=== PATIENT | female | born 1930 | race African-American/Black ===

== ENCOUNTER 2018-09-26 14:56 | Inpatient (IN) ==
[2018-09-26] MEDS ORDERED: ALBUTEROL/IPRATROPIUM 3 ML NEB RESP TX STA (15:17)
[2018-09-26] MEDS ORDERED: methylPREDNISolone SOD SUC 125 MG/2 ML VIAL IV STA (15:17)
[2018-09-26 15:56] LABS: Albumin 2.8 G/DL (3.4-5.0); Bilirubin,Total 0.6 MG/DL (0.2-1.0); Calcium 8.8 MG/DL (8.5-10.1); Osmolality,Calculated 301.4 MOS/KG (273-304); Total Protein 7.3 G/DL (6.4-8.3)
[2018-09-26 16:02] LABS: Potassium 6.7 MMOL/L (3.5-5.1)
[2018-09-26] MEDS ORDERED: FUROSEMIDE 40 MG/4 ML VIAL IV STA (16:07)
[2018-09-26 16:29] LABS: Basophils % 0.2 % (0.0-0.8); Eosinophils % 0.1 % (0.00-10.9); Hematocrit 29.6 VOL% (35.7-47.0); Hemoglobin 8.8 GM/DL (12.0-16.0); Immature Granulocytes % 0.5 %; Immature Granulocytes Absolute 0.04 #; Lymphocytes # 1.8 10*3/uL (1.4-4.0); Lymphocytes % 20.4 % (21.3-54.2); Mean Corpuscular HGB Conc 29.7 GM/DL (32-36); Mean Corpuscular Hemoglobin 27 PG (27-34); Mean Corpuscular Volume 91.9 FL (87-102); Mean Platelet Volume 10.6 FL (9.6-12.0); Monocytes # 0.6 10*3/uL (0.11-0.8); Monocytes % 6.5 % (1.7-12.7); Neutrophils # 6.2 10*3/uL (1.4-7.4); Neutrophils % 72.3 % (38.7-73.9); Platelet Count 315 T/CUMM (130-400); Red Blood Count 3.22 MC/CUMM (3.8-5.5); Red Cell Distribution Width 14.6 % (9.3-17.3); White Blood Count 8.6 T/CUMM (4-12)
[2018-09-26 16:49] LABS: Apearance,Urine CLOUDY (Clear); Bacteria,Urine Many /HPF (Few); Bilirubin,Urine Negative (Negative); Blood, Urine Moderate mg/dL (Negative); Glucose,Urine (UA) Negative (Negative); Ketones,Urine Negative (Negative); Nitrite,Urine Negative (Negative); Protein,Urine Negative; RBC,Urine 6 /HPF (0-4); Urine Color Yellow (Yellow); Urine Specific Gravity 1.015 (1.001-1.035); Urine Urobilinogen < 2.0 EU/DL (0.2-1.0); WBC,Urine 97 /HPF (0-6)
[2018-09-26 16:55] LABS: Albumin 2.7 G/DL (3.4-5.0); Bilirubin,Total 0.4 MG/DL (0.2-1.0); Calcium 9.1 MG/DL (8.5-10.1); Osmolality,Calculated 301.4 MOS/KG (273-304); Potassium 5.4 MMOL/L (3.5-5.1); Total Protein 7.7 G/DL (6.4-8.3)
[2018-09-26] MEDS ORDERED: cefTRIAXone 1,000 MG in SODIUM CHLORIDE 0.9% 100 ML IV STA (17:10)
[2018-09-26] MEDS ORDERED: INSULIN REGULAR 100 UNIT/ML SUBCUT PRN (18:07)
[2018-09-26] MEDS ORDERED: ONDANSETRON 4 MG/2 ML VIAL IV PRN (18:12)
[2018-09-26] MEDS ORDERED: ACETAMINOPHEN 325 MG TABLET PO PRN (18:15)
[2018-09-26] MEDS ORDERED: MAGNESIUM SULF RIDER 4 GM in PREMIX 1 EACH IV PRN (18:15)
[2018-09-26] MEDS ORDERED: MAGNESIUM SULF RIDER 2 GM in PREMIX 1 EACH IV PRN (18:15)
[2018-09-26] MEDS ORDERED: GLUCAGON 1 MG VIAL IM PRN (18:19)
[2018-09-26] MEDS: ALBUTEROL/IPRATROPIUM 3 ML NEB RESP TX SCH (19:07)
[2018-09-26] MEDS ORDERED: LOSARTAN 50 MG TABLET PO SCH (21:00)
[2018-09-27] MEDS: ALBUTEROL/IPRATROPIUM 3 ML NEB RESP TX SCH ×7 (00:39→22:56)
[2018-09-27 01:59] LABS: Osmolality,Calculated 313.1 MOS/KG (273-304)
[2018-09-27 02:14] LABS: Potassium 6.3 MMOL/L (3.5-5.1)
[2018-09-27] MEDS ORDERED: INSULIN REGULAR 100 UNIT/ML IV ONE ×5 (02:54→11:21)
[2018-09-27 03:25] LABS: Allen Test Positive
[2018-09-27 03:26] LABS: ABG Base Excess -5.2 MMOL/L (-2.5-2.5); ABG HCO3 20.1 MMOL/L (20-26); ABG Oxygen Saturation 95.2 % (95-100); ABG PCO2 32.3 MM HG (35-48); ABG PH 7.382 (7.35-7.45); ABG PO2 76.7 MM HG (80-95); ABG TCO2 17.8 MMOL/L (23-27)
[2018-09-27] MEDS: SODIUM POLYSTYRENE SULFATE 15 GM/60 ML BOTTLE PO SCH ×3 (05:03→18:35)
[2018-09-27] MEDS: MEMANTINE 10 MG TABLET PO SCH ×2 (05:33→08:35)
[2018-09-27] MEDS: DICLOFENAC SODIUM 50 MG TABLET PO SCH ×2 (05:33→08:35)
[2018-09-27] MEDS: miSOPROStol 200 MCG TABLET PO SCH ×2 (05:33→08:34)
[2018-09-27] MEDS: CALCIUM (CARBONATE)/VITAMIN D 600 MG-400 UNIT TABLET PO SCH ×2 (05:33→08:35)
[2018-09-27] MEDS: LEVOTHYROXINE 25 MCG TABLET PO SCH (06:23)
[2018-09-27] MEDS ORDERED: INSULIN ASPART PROTAMINE/ASPART 70/30 100 UNIT/ML SUBCUT SCH (07:30)
[2018-09-27] MEDS: glipiZIDE 5 MG TABLET PO SCH (07:45)
[2018-09-27] MEDS ORDERED: INSULIN LISPRO 100 UNIT/ML SUBCUT SCH (08:00)
[2018-09-27] MEDS ORDERED: FUROSEMIDE 40 MG/4 ML VIAL IV SCH (08:00)
[2018-09-27] MEDS ORDERED: SODIUM BICARBONATE 50 MEQ/50 ML SYRINGE IV ONE (08:01)
[2018-09-27] MEDS ORDERED: INSULIN REGULAR 100 UNIT/ML SUBCUT ONE (08:02)
[2018-09-27] MEDS: ATORVASTATIN 10 MG TABLET PO SCH (08:35)
[2018-09-27] MEDS: LORATADINE 10 MG TABLET PO SCH (08:35)
[2018-09-27] MEDS: amLODIPine 5 MG TABLET PO SCH (08:35)
[2018-09-27] MEDS: MULTIVITAMIN (CENTRUM) TABLET PO SCH (08:35)
[2018-09-27] MEDS: cefTRIAXone 1,000 MG in SYRINGE 1 EACH IV SCH (08:36)
[2018-09-27] MEDS: hydrALAZINE 25 MG TABLET PO SCH (08:36)
[2018-09-27] MEDS: FUROSEMIDE 40 MG/4 ML VIAL IV SCH (08:36)
[2018-09-27] MEDS ORDERED: predniSONE 20 MG TABLET PO SCH (09:00)
[2018-09-27] MEDS: CARBOXYMETHYLCELLULOSE 1% OPH SOLN BOTH EYES SCH (10:19)
[2018-09-27] MEDS: RIVASTIGMINE 9.5 MG/24 HR PATCH TRANSDERM SCH (10:19)
[2018-09-27] MEDS: NITROGLYCERIN 2% OINT 1 INCH/GM PACK TOP SCH ×2 (11:10→18:20)
[2018-09-27] MEDS: INSULIN LISPRO 100 UNIT/ML SUBCUT SCH ×2 (12:10→17:52)
[2018-09-27] MEDS: INSULIN ASPART PROTAMINE/ASPART 70/30 100 UNIT/ML SUBCUT SCH (15:43)
[2018-09-27] MEDS: DEXTROSE 50% 25 GM/50 ML SYRINGE IV PRN (16:04)
[2018-09-28] MEDS: INSULIN LISPRO 100 UNIT/ML SUBCUT SCH ×4 (00:36→17:40)
[2018-09-28] MEDS: DICLOFENAC SODIUM 50 MG TABLET PO SCH ×2 (01:00→08:50)
[2018-09-28] MEDS: hydrALAZINE 25 MG TABLET PO SCH ×3 (01:00→21:50)
[2018-09-28] MEDS: CALCIUM (CARBONATE)/VITAMIN D 600 MG-400 UNIT TABLET PO SCH ×3 (01:00→21:50)
[2018-09-28] MEDS: miSOPROStol 200 MCG TABLET PO SCH ×3 (01:00→21:51)
[2018-09-28] MEDS: MEMANTINE 10 MG TABLET PO SCH ×3 (01:00→21:51)
[2018-09-28] MEDS: ALBUTEROL/IPRATROPIUM 3 ML NEB RESP TX SCH ×3 (02:50→11:26)
[2018-09-28] MEDS: NITROGLYCERIN 2% OINT 1 INCH/GM PACK TOP SCH ×4 (04:04→17:40)
[2018-09-28 04:35] LABS: Calcium 8.5 MG/DL (8.5-10.1); Osmolality,Calculated 310.8 MOS/KG (273-304); Potassium 5.3 MMOL/L (3.5-5.1)
[2018-09-28] MEDS: LEVOTHYROXINE 25 MCG TABLET PO SCH (06:26)
[2018-09-28] MEDS: INSULIN ASPART PROTAMINE/ASPART 70/30 100 UNIT/ML SUBCUT SCH ×2 (08:47→17:40)
[2018-09-28] MEDS: cefTRIAXone 1,000 MG in SYRINGE 1 EACH IV SCH (08:48)
[2018-09-28] MEDS: RIVASTIGMINE 9.5 MG/24 HR PATCH TRANSDERM SCH (08:49)
[2018-09-28] MEDS: FUROSEMIDE 40 MG/4 ML VIAL IV SCH (08:49)
[2018-09-28] MEDS: CARBOXYMETHYLCELLULOSE 1% OPH SOLN BOTH EYES SCH (08:50)
[2018-09-28] MEDS: amLODIPine 5 MG TABLET PO SCH (08:50)
[2018-09-28] MEDS: glipiZIDE 5 MG TABLET PO SCH (08:50)
[2018-09-28] MEDS: MULTIVITAMIN (CENTRUM) TABLET PO SCH (08:50)
[2018-09-28] MEDS ORDERED: SODIUM POLYSTYRENE SULFATE 15 GM/60 ML BOTTLE PO ONE (12:30)
[2018-09-28] MEDS: COLLAGENASE OINT 30 GM TUBE TOP SCH (13:08)
[2018-09-28] MEDS ORDERED: METOPROLOL TARTRATE 25 MG TABLET PO SCH (21:00)
[2018-09-28] MEDS: METOPROLOL TARTRATE 50 MG TABLET PO SCH (21:51)
[2018-09-29] MEDS: DEXTROSE 50% 25 GM/50 ML SYRINGE IV PRN (01:05)
[2018-09-29] MEDS: INSULIN LISPRO 100 UNIT/ML SUBCUT SCH ×3 (03:52→14:24)
[2018-09-29] MEDS: NITROGLYCERIN 2% OINT 1 INCH/GM PACK TOP SCH ×3 (03:53→14:13)
[2018-09-29 04:51] LABS: Basophils % 0.5 % (0.0-0.8); Eosinophils # 0.2 10*3/uL (0.0-0.87); Eosinophils % 2.6 % (0.00-10.9); Hematocrit 28.8 VOL% (35.7-47.0); Hemoglobin 8.7 GM/DL (12.0-16.0); Immature Granulocytes % 0.4 %; Immature Granulocytes Absolute 0.03 #; Lymphocytes # 1.5 10*3/uL (1.4-4.0); Lymphocytes % 17.8 % (21.3-54.2); Mean Corpuscular HGB Conc 30.2 GM/DL (32-36); Mean Corpuscular Hemoglobin 27 PG (27-34); Mean Corpuscular Volume 90.9 FL (87-102); Mean Platelet Volume 10.6 FL (9.6-12.0); Monocytes # 0.6 10*3/uL (0.11-0.8); Monocytes % 6.9 % (1.7-12.7); NRBC # 0.03 10*3/uL; Neutrophils % 71.8 % (38.7-73.9); Platelet Count 310 T/CUMM (130-400); Red Blood Count 3.17 MC/CUMM (3.8-5.5); Red Cell Distribution Width 14.8 % (9.3-17.3); White Blood Count 8.3 T/CUMM (4-12)
[2018-09-29 05:01] LABS: Calcium 8.8 MG/DL (8.5-10.1); Potassium 5.1 MMOL/L (3.5-5.1)
[2018-09-29] MEDS: cefTRIAXone 1,000 MG in SYRINGE 1 EACH IV SCH (08:59)
[2018-09-29] MEDS: FUROSEMIDE 40 MG/4 ML VIAL IV SCH (09:00)
[2018-09-29] MEDS: miSOPROStol 200 MCG TABLET PO SCH (09:00)
[2018-09-29] MEDS: CALCIUM (CARBONATE)/VITAMIN D 600 MG-400 UNIT TABLET PO SCH (09:00)
[2018-09-29] MEDS: LORATADINE 10 MG TABLET PO SCH (09:01)
[2018-09-29] MEDS: LEVOTHYROXINE 25 MCG TABLET PO SCH (09:01)
[2018-09-29] MEDS: CARBOXYMETHYLCELLULOSE 1% OPH SOLN BOTH EYES SCH (09:01)
[2018-09-29] MEDS: MULTIVITAMIN (CENTRUM) TABLET PO SCH (09:01)
[2018-09-29] MEDS: ATORVASTATIN 10 MG TABLET PO SCH (09:01)
[2018-09-29] MEDS: METOPROLOL TARTRATE 50 MG TABLET PO SCH (09:01)
[2018-09-29] MEDS: hydrALAZINE 25 MG TABLET PO SCH (09:01)
[2018-09-29] MEDS: INSULIN ASPART PROTAMINE/ASPART 70/30 100 UNIT/ML SUBCUT SCH (09:02)
[2018-09-29] MEDS: RIVASTIGMINE 9.5 MG/24 HR PATCH TRANSDERM SCH (09:02)
[2018-09-29] MEDS: COLLAGENASE OINT 30 GM TUBE TOP SCH (09:03)
[2018-09-29] MEDS: MEMANTINE 10 MG TABLET PO SCH (09:08)
[2018-09-29 12:37] VITALS: BP 121/52
[2018-10-02] MEDS ORDERED: Alendronate Sodium [Fosamax] 70 MG PO SCH (07:00)
== END 2018-09-29 17:19 | DRG 292 ==
LOC: N.ED 14:56 → SUATTDRO 18:11 → N.EDINP 18:11 → N.TELES 19:29
PROVIDERS: ADMIT Phlebology; ATTEND Internal Medicine

== ENCOUNTER 2018-11-08 15:30 | Inpatient (IN) ==
[2018-11-08 17:33] LABS: Basophils % 0.4 % (0.0-0.8); Eosinophils % 0.5 % (0.00-10.9); Hematocrit 46.3 VOL% (35.7-47.0); Immature Granulocytes % 0.7 %; Immature Granulocytes Absolute 0.05 #; Lymphocytes # 1.8 10*3/uL (1.4-4.0); Lymphocytes % 23.2 % (21.3-54.2); Mean Corpuscular HGB Conc 28.3 GM/DL (32-36); Mean Corpuscular Hemoglobin 25 PG (27-34); Mean Corpuscular Volume 87.5 FL (87-102); Mean Platelet Volume 11.4 FL (9.6-12.0); Monocytes # 0.4 10*3/uL (0.11-0.8); Monocytes % 4.8 % (1.7-12.7); NRBC # 0.06 10*3/uL; Neutrophils # 5.3 10*3/uL (1.4-7.4); Neutrophils % 70.4 % (38.7-73.9); Platelet Count 218 T/CUMM (130-400); Red Blood Count 5.29 MC/CUMM (3.8-5.5); Red Cell Distribution Width 15.6 % (9.3-17.3); White Blood Count 7.5 T/CUMM (4-12)
[2018-11-08 17:37] LABS: Hemoglobin 13.1 GM/DL (12.0-16.0)
[2018-11-08 17:52] LABS: Alanine Aminotransferase 27 U/L (13-56); Albumin 2.5 G/DL (3.4-5.0); Alkaline Phosphatase 109 U/L (45-117); Aspartate Amino Transferase 30 U/L (0-37); Blood Urea Nitrogen 80 MG/DL (7-18); Calcium 10.2 MG/DL (8.5-10.1); Glucose 218 MG/DL (74-106); Osmolality,Calculated 342.9 MOS/KG (273-304); Potassium 4.6 MMOL/L (3.5-5.1); Sodium 158 MMOL/L (136-145); Total Protein 8.3 G/DL (6.4-8.3)
[2018-11-08] MEDS ORDERED: GLUCAGON 1 MG VIAL IM PRN (18:17)
[2018-11-08] MEDS ORDERED: DEXTROSE 50% 25 GM/50 ML VIAL IV PRN (18:17)
[2018-11-08] MEDS ORDERED: hydrALAZINE 20 MG/1 ML VIAL IV PRN (18:19)
[2018-11-08] MEDS ORDERED: ENOXAPARIN 30 MG/0.3 ML SYRINGE SUBCUT SCH (21:00)
[2018-11-08] MEDS: DEXTROSE 5% 1,000 ML IV SCH (22:18)
[2018-11-08] MEDS: SILVER SULFADIAZINE 1% CREAM 25 GM TUBE TOP SCH (22:19)
[2018-11-09] MEDS: INSULIN REGULAR 100 UNIT/ML SUBCUT SCH ×2 (01:09→06:23)
[2018-11-09 06:19] LABS: Calcium 9.4 MG/DL (8.5-10.1); Osmolality,Calculated 345.7 MOS/KG (273-304); Potassium 3.9 MMOL/L (3.5-5.1)
[2018-11-09] MEDS: DEXTROSE 5% 1,000 ML IV SCH ×2 (06:21→15:50)
[2018-11-09 06:37] LABS: Basophils % 0.3 % (0.0-0.8); Eosinophils % 0.3 % (0.00-10.9); Hematocrit 38.6 VOL% (35.7-47.0); Immature Granulocytes % 0.5 %; Immature Granulocytes Absolute 0.03 #; Lymphocytes % 16.5 % (21.3-54.2); Mean Corpuscular Hemoglobin 25 PG (27-34); Mean Corpuscular Volume 86.5 FL (87-102); Mean Platelet Volume 11.4 FL (9.6-12.0); Monocytes # 0.2 10*3/uL (0.11-0.8); Monocytes % 2.5 % (1.7-12.7); NRBC # 0.08 10*3/uL; Neutrophils # 4.8 10*3/uL (1.4-7.4); Neutrophils % 79.9 % (38.7-73.9); Platelet Count 217 T/CUMM (130-400); Red Blood Count 4.46 MC/CUMM (3.8-5.5); Red Cell Distribution Width 15.5 % (9.3-17.3)
[2018-11-09 06:38] LABS: Hemoglobin 11.2 GM/DL (12.0-16.0)
[2018-11-09] MEDS: RIVASTIGMINE 9.5 MG/24 HR PATCH TRANSDERM SCH (08:36)
[2018-11-09] MEDS: CARBOXYMETHYLCELLULOSE 1% OPH SOLN BOTH EYES SCH (08:37)
[2018-11-09] MEDS ORDERED: COLLAGENASE OINT 30 GM TUBE TOP SCH (09:00)
[2018-11-09] MEDS: INSULIN LISPRO 100 UNIT/ML SUBCUT SCH ×2 (11:49→18:18)
[2018-11-09] MEDS: INSULIN GLARGINE 100 UNIT/ML SUBCUT SCH (11:49)
[2018-11-09 13:22] LABS: Calcium 9.4 MG/DL (8.5-10.1); Osmolality,Calculated 334.1 MOS/KG (273-304)
[2018-11-09 15:21] LABS: Apearance,Urine CLOUDY (Clear); Bacteria,Urine Occasional /HPF (Few); Bilirubin,Urine Negative (Negative); Blood, Urine Moderate mg/dL (Negative); Glucose,Urine (UA) 150 mg/dL (Negative); Ketones,Urine 5 mg/dL (Negative); Nitrite,Urine Negative (Negative); Protein,Urine Negative; RBC,Urine 18 /HPF (0-4); Squamous Epithelial Cell,Urine Occasional /HPF (0-10); Urine Color Amber (Yellow); Urine Urobilinogen < 2.0 EU/DL (0.2-1.0); WBC,Urine 137 /HPF (0-6)
[2018-11-09] MEDS ORDERED: cefTRIAXone 1,000 MG in SYRINGE 1 EACH IV SCH (16:30)
[2018-11-09] MEDS: SILVER SULFADIAZINE 1% CREAM 25 GM TUBE TOP SCH (21:01)
[2018-11-10] MEDS: INSULIN LISPRO 100 UNIT/ML SUBCUT SCH ×2 (00:52→05:55)
[2018-11-10] MEDS: DEXTROSE 5% 1,000 ML IV SCH (04:20)
[2018-11-10 05:37] LABS: Calcium 9.2 MG/DL (8.5-10.1); Osmolality,Calculated 318.6 MOS/KG (273-304); Potassium 3.6 MMOL/L (3.5-5.1)
[2018-11-10 05:47] LABS: Prealbumin 13.6 MG/DL (20-40)
[2018-11-10] MEDS ORDERED: PROPOFOL 200 MG/20 ML VIAL IV ONE (10:00)
[2018-11-10] MEDS ORDERED: LIDOCAINE 2% 5 ML VIAL ONE (10:00)
[2018-11-10] MEDS ORDERED: PHENYLEPHRINE 1 MG/10 ML SYRINGE IV ONE (10:00)
[2018-11-10] MEDS: INSULIN GLARGINE 100 UNIT/ML SUBCUT SCH (10:02)
[2018-11-10] MEDS: RIVASTIGMINE 9.5 MG/24 HR PATCH TRANSDERM SCH (10:11)
[2018-11-10] MEDS: CARBOXYMETHYLCELLULOSE 1% OPH SOLN BOTH EYES SCH (10:12)
[2018-11-10 11:55] VITALS: BP 125/77
== END 2018-11-10 12:26 | DRG 682 ==
LOC: EDUNIT# → N.ED 15:30 → N.EDINP 18:14 → N.5E 20:24
PROVIDERS: ADMIT Internal Medicine; ATTEND Internal Medicine
PROC: EGDWPEG (ICD-10-PCS; 2018-11-10 08:05)